=== PATIENT | male | born 1955 | race Caucasian/White ===

== ENCOUNTER → 2018-03-22 11:07 | Outpatient (CLI) | payer OTHER, SELFPAY | PROVIDERS: Family Provider Family Medicine; PCP Family Medicine; Visit Provider Physician Assistant Medical | DX: R22.1 Localized swelling, mass and lump, neck (principal) | CPT/HCPCS: 87081 ==

== ENCOUNTER → 2018-04-15 10:04 | Outpatient (CLI) | payer OTHER, SELFPAY ==
[2018-04-15 12:33] LABS: Anion Gap 6 (5-15); BUN 17 mg/dL (7-18); BUN/Creat Ratio 16.2 RATIO (10-20); Calcium,Total 9.1 mg/dL (8.5-10.1); Chloride 103 mmol/L (98-107); Creatinine, Serum 1.05 mg/dL (0.70-1.30); EST Glomerular Filtration Rate 76 mL/min (>60); Est Glom Filt Rate - Afr Amer 92 mL/min (>60); Glucose 92 mg/dL (74-106); Potassium 5.3 mmol/L (3.5-5.1); Sodium Level 137 mmol/L (136-145)
== END ==
PROVIDERS: Family Provider Family Medicine; PCP Family Medicine; Visit Provider Family Medicine
DX: I10 Essential (primary) hypertension (principal)
CPT/HCPCS: 36415; 80048

== ENCOUNTER → 2018-10-19 10:23 | Outpatient (CLI) | payer OTHER, SELFPAY ==
[2018-10-19 12:18] LABS: Anion Gap 8 (5-15); BUN 14 mg/dL (7-18); BUN/Creat Ratio 13.3 RATIO (10-20); Chloride 103 mmol/L (98-107); Creatinine, Serum 1.05 mg/dL (0.70-1.30); EST Glomerular Filtration Rate 76 mL/min (>60); Est Glom Filt Rate - Afr Amer 92 mL/min (>60); Glucose 96 mg/dL (74-106); PSA,Total - Annual Screen 2.64 ng/mL (0.00-4.00); Potassium 4.2 mmol/L (3.5-5.1); Sodium Level 140 mmol/L (136-145)
== END ==
PROVIDERS: Family Provider Family Medicine; PCP Family Medicine; Visit Provider Family Medicine
DX: Z00.00 Encounter for general adult medical examination without abnormal findings (principal); I10 Essential (primary) hypertension
CPT/HCPCS: 36415; 80048; 84153; G0103

== ENCOUNTER 2018-12-18 07:30 | Day surgery (SDC) | payer OTHER, SELFPAY ==
[2018-12-18] VITALS (8 sets, daily range): BP systolic 77–105; BP diastolic 64–76; PULSE 58–96; RESP 16; TEMP 36.1–36.5; O2SAT 94–100; BMI 23.4
--- NOTE | 2018-12-18 08:09 | H&P.OPEN ---
History of Present Illness Date of Admission: 12/18/18 The patient is a 63 year old M here for screening colonoscopy. His last colonoscopy was 5 years ago and he did have polyps. He reports no blood in his stool or abdominal pain. No family history of colon cancer. No anticoagulation. Past Medical/Surgical History - Planned Operation Planned Operative Procedure/s: colonoscopy open access Date of Operative Procedure: 12/18/18 Permit Signed: No S.O.S: No Is This Patient Having a Total Joint: No - Previous Hospitalizations/Surgeries HX Hospitalizations: No HX of Surgeries: skin lesion removed from back. colonoscopy Any Problems With Anesthesia: No You/Your Family Experience Fever (Hyperthermia) With Anes: No Cholinesterase deficiency: No - Cardiovascular Hx Chest Pain within Last 2 months: No Hx of Irregular Heartbeat and/or Afib: No Hx Heart Attack: No Hx Congestive Heart Failure: No Hx Rheumatic Fever: No Hx Hypertension: Yes - controlled with med Hx Internal Defibrillator: No Hx Pacemaker: No Hx Cardiac Catheterization: No Hx Cardiac Surgery/Stents/Etc.: No Hx Stress Test: No HX Edema: No Hx Pain in Legs when Walking/Leg Cramps: No - Respiratory Chronic Cough: No HX of Shortness of Breath: No Hoarseness: No Hx Chronic Obstructive Pulmonary Disease (COPD): No Hx Asthma: No Hx Emphysema: No Hx Sleep Apnea: No Hx Oxygen Use at Home: No Hx Respiratory Tract Infection/Cold (presently): No Do You Snore Loudly (louder than talking or can be heard): Yes Do You Often Feel Tired/ Fatigued/ Sleepy Dring Daytime?: No Has Anyone Observed You Stop Breathing During Sleep?: No Result (for STOP score): Positive Hx Smoking: No Smoking Status: Never smoker - Gastrointestinal Hx Gastroesophageal Reflux: No - occ heartburn Hx Gastrointestinal Disorders: No Hx Gastrointestinal Bleed: No Hx Ulcer: No Hx Hiatal Hernia: No Difficulty Chewing/Swallowing: No Recent Onset of Swallowing Problems: No Special diet followed at home: No Hx Unplanned Weight Loss of 20#: No HX Unplanned Weight Gain of 20#: No - Neurological Hx Seizures: No HX Syncope/Blackout Spells/Unconsciousness: No Hx CVA/Stroke: No Hx Transient Ischemic Attacks (TIA): No Hx Multiple Sclerosis: No Hx Parkinson's Disease: No Hx Head/Neck Injury: No Hx Headaches: No Hx Back Injury/Pain: No Recent Onset of Speech Difficulty: No Restless Legs: No Does patient have nerve stimulator: No Patient instructed to have device shut off: No Rep notified?: No - Blood Disorder Hx Leukemia: No Bleeding Tendencies: No Hx Deep Vein Thrombosis: No Hx High Cholesterol: No Blood Transmitted Disease: No Hx Hepatitis: No Hx Cirrhosis: No Hx Anemia: No Hx Blood Disorders: No - Genitourinary Hx Renal Disease: No - Musculoskeletal Hx Arthritis: No Hx Rheumatoid Arthritis: No Hx Gout: No Recent Onset of an Orthopedic Problem: No - Endocrine Hx Diabetes: No Thyroid Disease: No Hx Steroid Therapy: No - Psycho/Social Hx Substance Use: No Hx Alcohol Use: Yes - occ Hx Anxiety: No Hx Depression: No Mental Illness: No Hx Dementia: No - Miscellaneous Hx Cancer: Yes - skin Recent Exposure to Contagious Disease: No Active MRSA: No Hx of C-Diff: No Any Loose Teeth: No Allergies No Known Allergies Allergy (Verified 12/17/18 09:36) - Discharge Is Pt Admitted From a Residential, or a Nursing Home: No Who Could Help: family After D/C, Where Do you Plan to Go: Return Home - From the PAT History Number of Risk Factors: 2 - Physical Exam General: Alert, Oriented x3 Neck: No JVD Lungs: Normal air movement Cardiovascular: Regular rate, Regular Rhythm Abdomen: Soft, Non Tender, Non-Distended Vital Signs Temp Pulse Resp BP Pulse Ox 96.9 F L 96 16 101/70 100 12/18/18 07:43 12/18/18 07:43 12/18/18 07:43 12/18/18 07:43 12/18/18 07:43 Oxygen Delivery Method Room Air Weight: 145 lb 4.554 oz Body Mass Index (BMI) 23.4 Assessment/Plan 63-year-old male for screening colonoscopy I explained endoscopy in detail to the patient. I explained the risks including but not limited to stroke or heart attack with anesthesia, perforation of the GI tract, bleeding, infection. I explained that any of these could necessitate further emergency surgery. The patient understands and all questions were answered sufficiently. The patient wishes to proceed with procedure. Suleman Beyer MD Pager: [facility] [address] [place] [address], [address] [place] [address] Office: Surgery Risks - Colonoscopy Risks Include but are not Limited To: Risks include but are not limited to: Bleeding, perforation requiring further surgery, inability to complete colonoscopy requiring barium enema.
--- NOTE | 2018-12-18 08:42 | OP.ENDO_ITS ---
Patient Name: Dagoberto Rowell Procedure Date: 12/18/2018 8:17 AM Date of : 1955 Age: 63 Procedure: Colonoscopy Indications: High risk colon cancer surveillance: Personal history of colonic polyps Providers: Suleman Beyer MD Medicines: Monitored Anesthesia Care Patient Profile: This is a 63 year old male. Refer to note in patient chart for documentation of history and physical. Last Colonoscopy: 5 years ago. Complications: No immediate complications. Procedure: Pre-Anesthesia Assessment: - Prior to the procedure, a History and Physical was performed, and patient medications and allergies were reviewed. The patient's tolerance of previous anesthesia was also reviewed. The risks and benefits of the procedure and the sedation options and risks were discussed with the patient. All questions were answered, and informed consent was obtained. Prior Anticoagulants: The patient has taken no previous anticoagulant or antiplatelet agents. After reviewing the risks and benefits, the patient was deemed in satisfactory condition to undergo the procedure. After I obtained informed consent, the scope was passed under direct vision. Throughout the procedure, the patient's blood pressure, pulse, and oxygen saturations were monitored continuously. The pediatric colonoscope was introduced through the anus and advanced to the cecum, identified by appendiceal orifice and ileocecal valve. The colonoscopy was performed without difficulty. The patient tolerated the procedure well. The quality of the bowel preparation was good. Scope In: 8:25:47 AM Scope Withdrawal Time 0 hours 6 minutes 43 seconds Scope Out: 8:37:45 AM Total Procedure Duration Time 0 hours 11 minutes 58 seconds Findings: The entire examined colon appeared normal on direct and retroflexion views. Impression: - The entire examined colon is normal on direct and retroflexion views. - No specimens collected. Recommendation: - Discharge patient to home. - Resume previous diet. - Continue present medications. - Repeat colonoscopy in 10 years for screening purposes. Procedure Code(s): --- Professional --- G0105, 33, Colorectal cancer screening; colonoscopy on individual at high risk CPT copyright 2017 [employer]. All rights reserved. The codes documented in this report are preliminary and upon medical records auditor review may be revised to meet current compliance requirements. Suleman Beyer MD 12/18/2018 8:41:35 AM This report has been signed electronically. Number of Addenda: 0 Note Initiated On: 12/18/2018 8:17 AM
== END 2018-12-18 09:30 | disposition home or self-care (01) ==
LOC: EN 07:30 → AC 07:32
PROVIDERS: Family Provider Family Medicine; PCP Family Medicine; Referring Provider Family Medicine; Visit Provider Surgery
PROC: 0DJD8ZZ Inspection of Lower Intestinal Tract, Via Natural or Artificial Opening Endoscopic (ICD-10-PCS; CPT 45378; principal; 2018-12-18 08:25)
DX: Z12.11 Encounter for screening for malignant neoplasm of colon (principal); I10 Essential (primary) hypertension; Z79.899 Other long term (current) drug therapy; Z86.010 Personal history of colon polyps; Z85.828 Personal history of other malignant neoplasm of skin
CPT/HCPCS: 45378; J7120

== ENCOUNTER → 2019-04-19 | Outpatient (CLI) | payer OTHER, SELFPAY ==
[2018-12-18 07:43] VITALS: BMI 23.4
[2019-04-19 12:56] LABS: Anion Gap 2 (5-15); BUN 12 mg/dL (7-18); BUN/Creat Ratio 12.1 RATIO (10-20); Chloride 105 mmol/L (98-107); EST Glomerular Filtration Rate 80 mL/min (>60); Est Glom Filt Rate - Afr Amer 97 mL/min (>60); Glucose 94 mg/dL (74-106); Sodium Level 140 mmol/L (136-145)
== END | disposition home or self-care (01) ==
LOC: MTLAB 09:44
PROVIDERS: Family Provider Family Medicine; PCP Family Medicine; Referring Provider Family Medicine; Visit Provider Family Medicine
DX: I10 Essential (primary) hypertension (principal)
CPT/HCPCS: 36415; 80048

== ENCOUNTER → 2019-12-17 09:23 | Outpatient (CLI) | payer MEDICARE, SELFPAY ==
[2018-12-18 07:43] VITALS: BMI 23.4
[2019-12-17 13:15] LABS: Anion Gap 5 (5-15); BUN 13 mg/dL (7-18); BUN/Creat Ratio 11.7 RATIO (10-20); Calcium,Total 9.2 mg/dL (8.5-10.1); Chloride 105 mmol/L (98-107); Cholesterol 172 mg/dL (200); Creatinine, Serum 1.11 mg/dL (0.70-1.30); EST Glomerular Filtration Rate 71 mL/min (>60); Est Glom Filt Rate - Afr Amer 86 mL/min (>60); Glucose 101 mg/dL (74-106); High Density Lipoprotein 53 mg/dL; PSA,Total - Annual Screen 2.89 ng/mL (0.00-4.00); Potassium 3.8 mmol/L (3.5-5.1); Sodium Level 138 mmol/L (136-145); Triglycerides 59 mg/dL; Very Low Density Lipoprotein 12 mg/dL (5-40)
== END ==
PROVIDERS: Nurse Practitioner Family; PCP Family Medicine; Referring Provider Family Medicine; Visit Provider Family Medicine
DX: I10 Essential (primary) hypertension (principal); Z13.220 Encounter for screening for lipoid disorders; Z12.5 Encounter for screening for malignant neoplasm of prostate
CPT/HCPCS: 36415; 80048; 80061; 84153; G0103

== ENCOUNTER → 2020-05-08 08:23 | Outpatient (CLI) | payer MEDICARE, SELFPAY ==
[2018-12-18 07:43] VITALS: BMI 23.4
[2020-05-08 10:24] LABS: Vitamin D,25 Hydroxy 33.4 ng/mL
[2020-05-11 13:41] LABS: Thyroid Stim Hormone (TSH) 0.59 uIU/mL (0.358-3.74)
== END ==
PROVIDERS: PCP Family Medicine; Referring Provider Family Medicine; Visit Provider Nurse Practitioner Family
DX: R53.83 Other fatigue (principal)
CPT/HCPCS: 36415; 82306; 84443

== ENCOUNTER → 2020-05-12 08:38 | Outpatient (CLI) | payer MEDICARE, SELFPAY ==
[2018-12-18 07:43] VITALS: BMI 23.4
[2020-05-12 09:46] LABS: Absolute Lymphocyte Count 2.15 X10^3/uL (0.83-4.51); Absolute Neutrophil Count 2.8 X10^3/uL (2.0-7.7); Basophil# 0.02 X10^3/uL; Basophil% 0.4 % (0-1); Eosinophil# 0.11 X10^3/uL; Hematocrit 45.1 % (40-54); Lymphocyte # 2.15 X10^3/ul (4.0); Lymphocyte % 38.5 % (19-41); Mean Corp Hgb Conc 33.3 g/dL (32-36); Mean Corpuscular Hgb 28.6 pg (27.0-32.0); Mean Corpuscular Volume 85.9 fL (80-94); Mean Platelet Vol. 9.7 fl (6.2-12.0); Monocyte# 0.53 X10^3/uL; Monocyte% 9.5 % (0-10); NRBC Flagged by Analyzer 0 % (0-5); Neutrophil # 2.77 X10^3/uL (2.7-7.7); Neutrophil % 49.6 % (47-70); Platelet Count 217 K/mm3 (150-450); RBC Distribution Width CV 13.9 % (11.6-14.6); RBC Distribution Width SD 43.3 fl (35.1-43.9); Red Blood Count 5.25 M/mm3 (4.6-6.2); White Blood Count 5.6 K/mm3 (4.4-11.0)
== END ==
PROVIDERS: PCP Family Medicine; Referring Provider Family Medicine; Visit Provider Nurse Practitioner Family
DX: R53.83 Other fatigue (principal)
CPT/HCPCS: 85025

== ENCOUNTER → 2020-11-09 16:16 | Outpatient (CLI) | payer MEDICARE, SELFPAY ==
[2018-12-18 07:43] VITALS: BMI 23.4
[2020-11-09 18:33] LABS: Anion Gap 6 (5-15); BUN 22 mg/dL (7-18); BUN/Creat Ratio 19.8 RATIO (10-20); Calcium,Total 9.7 mg/dL (8.5-10.1); Chloride 104 mmol/L (98-107); Cholesterol 223 mg/dL (200); Creatinine, Serum 1.11 mg/dL (0.70-1.30); EST Glomerular Filtration Rate 70 mL/min (>60); Est Glom Filt Rate - Afr Amer 85 mL/min (>60); Glucose 81 mg/dL (74-106); High Density Lipoprotein 75 mg/dL; Potassium 4.1 mmol/L (3.5-5.1); Sodium Level 138 mmol/L (136-145); Triglycerides 58 mg/dL; Very Low Density Lipoprotein 12 mg/dL (5-40)
== END ==
PROVIDERS: PCP Family Medicine; Referring Provider Family Medicine; Visit Provider Family Medicine
DX: I10 Essential (primary) hypertension (principal)
CPT/HCPCS: 36415; 80048; 80061

== ENCOUNTER → 2021-04-26 14:43 | Outpatient (CLI) | payer MEDICARE, OTHER, SELFPAY ==
[2018-12-18 07:43] VITALS: BMI 23.4
--- NOTE | 2021-04-26 14:50 | CT_ITS ---
STUDY: CT ABDOMEN AND PELVIS WITH CONTRAST REASON FOR EXAM: Male, 65 years old. Left inguinal hernia for one month. RADIATION DOSAGE (If Supplied By Facility): CTDIvol = ( 9.28 ) mGy, DLP = ( 333.56 ) mGycm TECHNIQUE: Transaxial images were obtained from the dome of the diaphragm to the symphysis pubis with oral contrast. Oral and amp;amp; IV REDICAT and amp;amp; 100ML ISOVUE 300 was administered. Sagittal and coronal images were reconstructed. Individualized dose optimization techniques were used for this CT. COMPARISON: None. FINDINGS: The visualized lung bases are unremarkable. The visualized portions of the heart are within normal limits. Normal liver. Normal gallbladder and extrahepatic biliary system. Normal spleen. Normal pancreas. Normal bilateral adrenal glands. 1.5cm cyst in the lateral upper pole of the right kidney. Cortical defect in the posterior midportion of the kidney with the surgical clips most likely secondary to prior surgical intervention. Normal left kidney. Normal visualized stomach. Normal small intestine. Normal colon. The appendix is visualized and appears normal. There is scattered atherosclerotic calcification of the abdominal aorta, without a demonstrated aneurysm. Normal inferior vena cava. Normal retroperitoneum. Diffuse bladder wall thickening although the bladder is not completely distended. There is enlargement of the prostate gland. It measures 4.4 cm x 5 cm. This causes indentation of the bladder base. Left inguinal hernia containing fat and nondilated portion of the sigmoid colon. The hernial sac measures 2.7 cm. Normal osseous structures. CT/Abdomen/Pelvis WITH Contrast IMPRESSION: Left inguinal hernia containing fat and nondilated portion of the sigmoid colon. Prostatic enlargement with indentation of the bladder base Diffuse bladder wall thickening. Electronically Signed: Gallito Palacios MD at 15:44 EDT , Service support ,
[2021-04-26 15:15] LABS: CREATININE FINGERSTICK 0.9 mg/dL (0.70-1.30); EGFR FINGERSTICK > 60.0000 mL/min (>60)
== END ==
PROVIDERS: PCP Family Medicine; Referring Provider Registered Nurse; Visit Provider Registered Nurse
DX: K40.90 Unilateral inguinal hernia, without obstruction or gangrene, not specified as recurrent (principal)
CPT/HCPCS: 74177; Q9967

== ENCOUNTER 2021-05-31 07:30 | Day surgery (SDC) | payer MEDICARE, OTHER, SELFPAY ==
[2021-05-08 13:46] VITALS: BMI 23.4
--- NOTE | 2021-05-28 11:06 | EKG12_ITS ---
Test Reason : PRE-OP Blood Pressure : / mmHG Vent. Rate : 065 BPM Atrial Rate : 065 BPM P-R Int : 130 ms QRS Dur : 088 ms QT Int : 396 ms P-R-T Axes : 071 021 050 degrees QTc Int : 411 ms Normal sinus rhythm Normal ECG Confirmed by ANDREW YA, CHARLES ([id number]), international editorial producer ZOHAIB MULLER ([id number]) on 05/29/2021 7:56:21 AM Referred By: Suleman Beyer Confirmed By:CHARLES MORALES MD
[2021-05-31] VITALS (10 sets, daily range): BP systolic 120–136; BP diastolic 50–90; PULSE 55–68; RESP 16–18; TEMP 36.1–37.1; O2SAT 95–100; BMI 23.6
[2021-05-31] MEDS: Lactated Ringers 1,000 ML 100 ML IV ×2 (08:22→11:30)
[2021-05-31 08:40] LABS: Anion Gap 1 (5-15); BUN 18 mg/dL (7-18); BUN/Creat Ratio 19.3 RATIO (10-20); Calcium,Total 9.3 mg/dL (8.5-10.1); Chloride 107 mmol/L (98-107); Creatinine, Serum 0.93 mg/dL (0.70-1.30); EST Glomerular Filtration Rate 86 mL/min (>60); Est Glom Filt Rate - Afr Amer 104 mL/min (>60); Estimated Creatinine Clearance 70.51 ml/min; Glucose 94 mg/dL (74-106); Sodium Level 139 mmol/L (136-145)
--- NOTE | 2021-05-31 09:35 | LIP_PTH ---
PATIENT: MATTY CHARLES LOC: [facility] [place][id number] AGE/SX: 65/M ROOM: RE05/31/[address]: Dr. Suleman Beyer MD : 1955 BED: DIS: 05/31/2021 SPEC #: [id number] RECD: 05/31/21 12:35 STATUS: LEENA RESonia #: [id number] ALIN: 05/31/21 09:[address]: Suleman Beyer DEPT: SURGICAL PATHOLOGY RECD BY: Barbara Gandhi ENTERED: 05/31/21 12:51 SP TYPE: LIPOMA OTHR DR: Dr. Nicole Muniz MD Tissues: Soft tissues, NOS Procedures: Surgery Specimen Level III HEADER OPERATION: Robotic assisted laparoscopic inguinal hernia repair with mesh PRE-OP DIAGNOSIS: Left inguinal hernia TISSUE SUBMITTED: Right inguinal lipoma MICROSCOPIC DIAGNOSIS Right inguinal lipoma: Mature adipose tissue consistent with lipoma. SJ:shanice 06/01/2021 MICROSCOPIC DESCRIPTION Slides are reviewed. GROSS DESCRIPTION Received in fixative is one container labeled with the patient's name and designated right inguinal lipoma. The specimen consists of an irregular piece of yellow adipose tissue measuring 9 x 2 x 1 cm. Sections reveal yellow adipose cut surfaces without area of hemorrhage, necrosis or cystic degeneration. Marketing Lead sections are submitted in one cassette. / SJ:shanice 05/31/21 TC:1 CPT: 28361
--- NOTE | 2021-05-31 09:35 | PCM.HP.BLA ---
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 Suleman Beyer MD) History of basal cell carcinoma (BCC) of skin History of colon polyps HTN (hypertension) Seasonal allergies Surgical History (Updated 05/08/21 @ 13:45 by Mary Gonzalez) History of colonoscopy (~2018) Family History (Updated 05/08/21 @ 13:45 by Mary Gonzalez) Father Hyperlipidemia Social History Smoking Status: Never smoker HPI HPI HPI: MATTY CHARLES, is a 65 M who presents to the office today for left groin bulging. The patient reports his left groin started having bulging about 6 weeks ago. It is causing him discomfort. It does go back in with laying down. No nausea or vomiting. No constipation or diarrhea. No complaints of pain or bulging on the opposite side. ROS General General: No weight change, appetite, fatigue, colon cancer, breast cancer or weakness HEENT HEENT: No difficulty swallowing, eye injury, eye surgery, swollen glands or hoarseness Endo Endocrine: No thyroid disease, diabetes mellitus, thyroid cancer, Hair loss, heat intolerance or cold intolerance Musc Musculoskeletal: No back problems, arthritis, rheumatoid arthritis, gout or joint pain Cardio Cardiovascular: Yes high blood pressure; No murmur, pacemaker, heart disease, atrial fibrillation, heart attack, heart stent, palpitations, shortness of breat with exertion or chest pain Psych Psychiatric: No depression, anxiety or hearing voices Resp Respiratory: No shortness of breath, No sleep apnea, Yes cough, No COPD, No asthma, No emphysema and No wheezing Gastro Gastrointestinal: Yes abdominal pain, No nausea or vomiting, No diarrhea, No constipation, No blood in stool, No acid reflux, No hemorrhoids, No ulcers, No gallbladder problem and No black,tarry stools Nicolas Hematologic: No blood thinners, No blood disorders, No bleeding, No anemia and No blood clots Neuro Neurologic: No weakness Exam Const General: cooperative Orientation: alert and oriented x3 HENMT Head: normal to inspection Neck Neck: normal visual inspection and full ROM Chest Chest palpation & inspection: normal inspection of the chest Resp Effort & Inspection: normal respiratory effort Auscultation: clear to auscultation bilaterally Cardio Rate: regular rate Rhythm: regular rhythm GI Inspection: non-distended Palpation: soft, hernia indirect inguinal on the left and nontender Skin General: no rashes or lesions noted Neuro General: patient alert and patient oriented x3 Extrem General: full ROM Psych Appearance: grossly normal Mental Status: mental status grossly normal Assessment and Plan Assessment and Plan (1) Left inguinal hernia: Status: Acute Plan - Dr. Suleman Beyer MD: Patient has left inguinal hernia which is reducible. I discussed left inguinal hernia approaches with him. I discussed open versus laparoscopic. I discussed robotic assisted laparoscopic inguinal hernia repair with mesh. I discussed the procedure in detail as well as the risks including but not limited to bleeding, infection, injury to other organs such as a bowel or spermatic cord, chronic groin pain. Patient understands all the risks and is willing to proceed with robotic assisted laparoscopic left inguinal hernia repair with mesh. I discussed contralateral hernia repair in case a right inguinal hernia is present he would like it repaired if it is present. Suleman Beeyr MD Pager: [facility] [address] [place] [address], [address] [place] [address] Office: I have re-examined the patient. There are no clinical changes since date of exam.
[2021-05-31] MEDS: Cefazolin 2 GM in 0.9% Normal Saline 100 ML IV (10:00)
[2021-05-31] MEDS: Bupivacaine Mpf 0.5% 30 ML VIAL (11:10)
--- NOTE | 2021-05-31 11:58 | OP.PCM_ITS ---
Problems Associated Problem List Diagnoses (1) Bilateral inguinal hernia: Report of Operation Date of Procedure: 05/31/21 Pre-Operative Diagnosis: Left inguinal hernia Post-Operative Diagnosis: Bilateral inguinal hernias Surgery/Procedure Performed:: Robotic assisted laparoscopic bilateral inguinal hernia repair with mesh Specimen's removed: Right cord lipoma Description of Procedure: Patient was brought to the operating room and general anesthesia was induced. The abdomen was prepped and draped in usual sterile fashion. An incision was made superior to the umbilicus. The fascia was grasped and elevated and a Veress needle was placed into the abdomen and a drop test was performed. The abdomen was then insufflated to 15 mmHg. Veress needle was removed and a camera port was placed into the abdomen and a camera was placed in the abdomen and there were no injuries. The inguinal regions were inspected and the patient had bilateral inguinal hernias. Patient was placed in Trendelenburg position. Next under direct visualization a right lower quadrant left lower quadrant 8 mm port were placed and the robot was docked. The left inguinal region was addressed first. The peritoneum was incised using electrocautery scissors. The dissection was carried inferiorly until the hernia sac was dissected free and reduced. ProGrip mesh was unfolded over the inguinal region completely covering the hernia. Peritoneum was reapproximated using a running 3-0V lock suture completely covering the mesh. Next attention was paid to the right side. Same fashion the peritoneum was incised using electrocautery scissors. Dissection was carried inferiorly and the peritoneum was complete dissected, reducing hernia sac. Patient also had a lipoma which was removed from the right side. This was sent for pathology. Appropriate mesh was then placed into the right groin completely covering this hernia and the peritoneum was reapproximated using a running 3-0V lock suture. The instruments were removed from the abdomen and the robot was undocked and the abdomen is allowed to desufflate. The ports were removed. The incisions were injected with local anesthetic and closed with interrupted 4-0 Monocryl suture. Bandage and Steri- Strips were applied. Patient scrotum was checked at the end the case and contain both testicles. Patient was awoken and taken to PACU in stable condition. Grafts/Implants Used: ProGrip mesh bilaterally Admit VTE Documentation VTE Mechan Device Prophylaxis: SCD's
--- NOTE | 2021-05-31 12:13 | EX.PCM.DISCH ---
Discharge Instructions Procedure Hernia Diet Discharge Diet: Light diet - advance as tolerated Activity Discharge Activity: May Not Drive (for 2-3 days or while taking narcotic pain meds.) and May Shower (with the bandage in place 1-2 days after surgery.) Lifting Restrictions: 20 pounds for 6 weeks. Additional Activity Instructions:: Climbing stairs is fine, walking is encouraged. Sitting in bed may be uncomfortable. Sitting up using your lateral muscles (sitting up sideways) is usually more comfortable. Do not drive, work heavy equipment of sign legal documents for 24 hours. If your hernia repair was an ingunial repair, you may have scrotal swelling, an ice pack and/or athletic support can provide more comfort. Pain medications may cause nausea, you should typically eat light foods as you take your pain medications. Pain medications may also cause constipation. If you have difficulty with this, discuss with your doctor. Dressing / Incision Call your doctor if your incision/area has: Continuous Slow Oozing, Sudden Increased Bleeding, Increased Pain/ Swelling, Increased Redness and Foul Smelling Discharge Call your doctor if you observe: Fever of 101 or Higher Suture Line Care: Avoid Pulling/Pushing and Avoid Pinching/Bending Remove Dressing in: 2 days Cleanse incision/area with: Soap & Water Additional Dressing/Incision Instructions:: Remove clear bandages in 2 days, remove Steri-Strips in 7 to 10 days Follow Up Care Please Follow Up With: Suleman Beyer MD When: Please call to schedule 2 week follow up appointment. [phone] Test Results: Test results from this visit will be discussed in further detail at your follow-up appointment, if applicable. Discharge Plan Admission Attending Provider: Suleman Beyer Primary Care Provider: Nicole Muniz Discharge Orders/Prescriptions Prescriptions: New oxycodone-acetaminophen [Percocet] 5-325 mg tablet 1 tab PO Q4H PRN (Reason: pain) 3 Days Qty: 10 RF: 0 No Action hydrochlorothiazide 25 MG tablet 25 mg PO DAILY RF: 0 ferrous sulfate 325 mg (65 mg iron) Tablet 325 mg PO DAILY RF: 0 rosuvastatin 5 mg tablet 5 mg PO DAILY RF: 0 Referrals / Follow Up: Nicole Muniz MD [Primary Care Provider] - Disposition Disposition (needs filled in before D/C Order can be placed): Home, Self Care
[2021-05-31] MEDS: oxyCODONE 5 MG Tablet PO (12:46)
[2021-05-31] MEDS: Acetaminophen 325 MG Tablet PO (12:47)
== END 2021-05-31 16:08 | disposition home or self-care (01) ==
LOC: SDC 07:31 → AC 07:31
PROVIDERS: Anesthesiology; PCP Family Medicine; Referring Provider Surgery; Visit Provider Surgery
PROC: (CPT 49650; principal; 2021-05-31 09:15)
DX: K40.20 Bilateral inguinal hernia, without obstruction or gangrene, not specified as recurrent (principal); D17.6 Benign lipomatous neoplasm of spermatic cord; I10 Essential (primary) hypertension; E78.00 Pure hypercholesterolemia, unspecified; Z85.828 Personal history of other malignant neoplasm of skin; Z79.899 Other long term (current) drug therapy
CPT/HCPCS: 00840; 49650; S2900; 80048; 88304; 93005; J7120; J2405

== ENCOUNTER 2021-11-07 14:58 | Outpatient (CLI) | payer MEDICARE, OTHER, SELFPAY ==
[2021-11-07 18:40] LABS: PSA,Total - Annual Screen 3.77 ng/mL (0.00-4.00)
== END 2021-11-07 23:59 | disposition short-term general hospital (02) ==
LOC: MFPLAB 15:02
PROVIDERS: PCP Family Medicine; Referring Provider Family Medicine; Visit Provider Family Medicine
DX: Z12.5 Encounter for screening for malignant neoplasm of prostate (principal)
CPT/HCPCS: 36415; 84153; G0103

== ENCOUNTER → 2022-05-07 | Outpatient (CLI) | payer MEDICARE, OTHER, SELFPAY ==
[2022-05-07 18:07] LABS: Anion Gap 4 (5-15); BUN 13 mg/dL (7-18); BUN/Creat Ratio 11.8 RATIO (10-20); Calcium,Total 8.9 mg/dL (8.5-10.1); Chloride 103 mmol/L (98-107); Cholesterol 155 mg/dL (200); EST Glomerular Filtration Rate 71 mL/min (>60); Est Glom Filt Rate - Afr Amer 86 mL/min (>60); Glucose 87 mg/dL (74-106); High Density Lipoprotein 63 mg/dL; Potassium 4.2 mmol/L (3.5-5.1); Sodium Level 137 mmol/L (136-145); Triglycerides 55 mg/dL; Very Low Density Lipoprotein 11 mg/dL (5-40)
== END | disposition home or self-care (01) ==
LOC: MFPLAB 14:24
PROVIDERS: PCP Family Medicine; Referring Provider Family Medicine; Visit Provider Family Medicine
DX: I10 Essential (primary) hypertension (principal)
CPT/HCPCS: 36415; 80048; 80061

== ENCOUNTER → 2022-07-12 | Outpatient (CLI) | payer MEDICARE, OTHER, SELFPAY ==
[2022-07-15 16:26] LABS: PSA, Free 1.08 ng/mL; PSA, Free % 32.7 % (.)
== END | disposition home or self-care (01) ==
LOC: MFPLAB 11:11
PROVIDERS: PCP Family Medicine; Referring Provider Urology; Visit Provider Urology
DX: R97.20 Elevated prostate specific antigen [PSA] (principal)
CPT/HCPCS: 36415; 84153; 84154

== ENCOUNTER → 2022-11-12 | Outpatient (CLI) | payer MEDICARE, OTHER, SELFPAY ==
[2022-11-12 12:53] LABS: AST(SGOT) 20 U/L (15-37); Alanine Aminotransfer ALT/SGPT 23 U/L (16-61); Anion Gap 6 (5-15); BUN 17 mg/dL (7-18); BUN/Creat Ratio 13.4 RATIO (10-20); Calcium,Total 9.3 mg/dL (8.5-10.1); Chloride 103 mmol/L (98-107); Cholesterol 157 mg/dL (200); Creatinine, Serum 1.27 mg/dL (0.70-1.30); EST Glomerular Filtration Rate 60 mL/min (>60); Est Glom Filt Rate - Afr Amer 73 mL/min (>60); Glucose 105 mg/dL (74-106); High Density Lipoprotein 69 mg/dL; PSA,Total - Annual Screen 3.88 ng/mL (0.00-4.00); Potassium 4.3 mmol/L (3.5-5.1); Sodium Level 138 mmol/L (136-145); Triglycerides 45 mg/dL; Very Low Density Lipoprotein 9 mg/dL (5-40)
== END | disposition home or self-care (01) ==
LOC: MTLAB 10:23
PROVIDERS: PCP Family Medicine; Referring Provider Family Medicine; Visit Provider Family Medicine
DX: Z00.00 Encounter for general adult medical examination without abnormal findings (principal); I10 Essential (primary) hypertension; Z12.5 Encounter for screening for malignant neoplasm of prostate
CPT/HCPCS: 36415; 80048; 80061; 84153; 84450; 84460; G0103

== ENCOUNTER → 2023-11-18 | Outpatient (CLI) | payer MEDICARE, OTHER, SELFPAY ==
[2023-11-18 12:35] LABS: Anion Gap 4 (5-15); BUN 17 mg/dL (7-18); BUN/Creat Ratio 14.9 RATIO (10-20); Calcium,Total 9.3 mg/dL (8.5-10.1); Chloride 107 mmol/L (98-107); Cholesterol 172 mg/dL (200); Creatinine, Serum 1.14 mg/dL (0.70-1.30); EST Glomerular Filtration Rate 68 mL/min (>60); Est Glom Filt Rate - Afr Amer 82 mL/min (>60); Glucose 109 mg/dL (74-106); High Density Lipoprotein 67 mg/dL; Potassium 4.5 mmol/L (3.5-5.1); Sodium Level 141 mmol/L (136-145); Triglycerides 60 mg/dL; Very Low Density Lipoprotein 12 mg/dL (5-40)
== END | disposition home or self-care (01) ==
LOC: MFPLAB 09:29
PROVIDERS: Family Medicine; PCP Family Medicine; Visit Provider Family Medicine
DX: E78.5 Hyperlipidemia, unspecified (principal); I10 Essential (primary) hypertension; Z12.5 Encounter for screening for malignant neoplasm of prostate
CPT/HCPCS: 36415; 80048; 80061; 84153; G0103

== ENCOUNTER → 2024-11-23 | Outpatient (CLI) | payer MEDICARE, OTHER, SELFPAY ==
[2024-11-23 16:32] LABS: Anion Gap 5 (5-15); BUN 13 mg/dL (7-18); BUN/Creat Ratio 12.6 RATIO (10-20); Chloride 103 mmol/L (98-107); Cholesterol 153 mg/dL (200); Creatinine, Serum 1.03 mg/dL (0.70-1.30); EST Glomerular Filtration Rate 76 mL/min (>60); Est Glom Filt Rate - Afr Amer 92 mL/min (>60); Glucose 87 mg/dL (74-106); High Density Lipoprotein 60 mg/dL; Potassium 4.8 mmol/L (3.5-5.1); Sodium Level 137 mmol/L (136-145); Triglycerides 54 mg/dL; Very Low Density Lipoprotein 11 mg/dL (5-40)
[2024-11-23 16:40] LABS: Protein, Urine (Random) 7.8 mg/dL (<11.9); Protein:Creat Ratio 122 mg/g CRE (0-200)
== END | disposition home or self-care (01) ==
LOC: MFPLAB 11:32
PROVIDERS: PCP Family Medicine; Referring Provider Family Medicine; Visit Provider Family Medicine
DX: I10 Essential (primary) hypertension (principal); Z12.5 Encounter for screening for malignant neoplasm of prostate
CPT/HCPCS: 36415; 80048; 80061; 82570; 84153; 84156; G0103

== ENCOUNTER → 2025-01-06 | Outpatient (CLI) | payer MEDICARE, OTHER, SELFPAY ==
[2025-01-07 13:08] LABS: PSA, Free 2.14 ng/mL; PSA, Free % 33.1 % (.)
== END | disposition home or self-care (01) ==
LOC: LAB 11:23
PROVIDERS: PCP Family Medicine; Referring Provider Urology; Visit Provider Urology
DX: R97.20 Elevated prostate specific antigen [PSA] (principal)
CPT/HCPCS: 36415; 84153; 84154

== ENCOUNTER → 2025-08-10 | Outpatient (CLI) | payer MEDICARE, OTHER, SELFPAY ==
[2025-08-10 15:53] LABS: Anion Gap 9 (5-15); BUN 15 mg/dL (4-19); BUN/Creat Ratio 16.4 RATIO (10-20); Calcium,Total 9.7 mg/dL (7.6-11.0); Carbon Dioxide 26.3 mmol/L (21.0-32.0); Chloride 105 mmol/L (98-108); Ferritin 67 ng/mL (37-417); Glucose 97 mg/dL (70-99); Potassium 4.9 mmol/L (3.3-5.1)
== END | disposition home or self-care (01) ==
LOC: MFPLAB 12:02
PROVIDERS: PCP Family Medicine; Visit Provider Family Medicine
DX: Z52.000 Unspecified donor, whole blood (principal); I10 Essential (primary) hypertension
CPT/HCPCS: 36415; 80048; 82728